=== PATIENT | female | born 1995 | race Caucasian/White ===

== ENCOUNTER 2022-10-23 19:18 | Emergency (ER) | payer SELFPAY ==
[~2022-10-23] VITALS: Ht 152.4 cm; Wt 52.6 kg
[2022-10-23 19:38] VITALS: BP 112/67
--- NOTE | 2022-10-23 20:08 | NUR ---
PATIENT REPORT POSITIVE TEST; HAS ABDOMINAL PAIN. PATIENT CURRENTLY DENIES VAGINAL BLEEDING PMH: IUP
[2022-10-23 20:31] LABS: BILIRUBIN,URINE NEGATIVE (NEGATIVE); BLOOD, URINE NEGATIVE (NEGATIVE); LEUKOCYTE ESTERASE ,URINE 3+ (NEGATIVE); NITRITE, URINE NEGATIVE (NEGATIVE); UGLUCOSE NEGATIVE (NEGATIVE)
[2022-10-23 20:32] LABS: APPEARANCE,URINE CLOUDY (CLEAR); COLOR,URINE AMBER (YELLOW)
[2022-10-23 20:43] LABS: RBC,URINE 0-5 /HPF (0-5)
[2022-10-23 21:17] LABS: BASOPHILS # (AUTO) 0.1 K/uL (0.00-0.22); BASOPHILS % (AUTO) 0.7 % (0.0-2.0); EOSINOPHILS # (AUTO) 0.1 K/uL (0-0.4); HEMATOCRIT 36.4 % (36-48); HEMOGLOBIN 12.8 g/dL (12.0-16.0); LYMPHOCYTES # (AUTO) 1.8 K/uL (2.5-16.5); LYMPHOCYTES % (AUTO) 22.6 % (20.5-51.1); MEAN CORPUSCULAR HEMOGLOBIN 31 pg (27-31); MEAN CORPUSCULAR HGB CONC 35 g/dL (33-37); MEAN CORPUSCULAR VOLUME 87.1 fL (80-94); MONOCYTES # (AUTO) 0.5 K/uL (0.8-1.0); MONOCYTES % (AUTO) 5.8 % (1.7-9.3); NEUTROPHILS # (AUTO) 5.6 K/uL (1.8-7.7); NEUTROPHILS % (AUTO) 69.9 % (42.2-75.2); PLATELET COUNT (AUTO) 202 K/uL (140-450); RED BLOOD CELL COUNT(AUTO) 4.17 MIL/uL (4.20-5.40); RED CELL DISTRIBUTION WIDTH 12.7 % (11.6-13.7)
[2022-10-23 21:34] LABS: ALBUMIN 3.9 g/dL (3.4-5.0); ANION GAP 13.4 (8-16); CARBON DIOXIDE 23.9 mmol/L (21-32); CREATININE 0.5 mg/dL (0.6-1.3); POTASSIUM 3.3 mmol/L (3.5-5.1); TOTAL BILIRUBIN 0.4 mg/dL (0.0-1.0)
[2022-10-23] MEDS ORDERED: NACL 0.9% 1,000 ML IV ONE (22:25)
[2022-10-23] MEDS ORDERED: ONDANSETRON 4 MG/2 ML VIAL IVP ONE (22:25)
[2022-10-23] MEDS ORDERED: CEPH-588 PO (22:36)
[2022-10-23] MEDS ORDERED: DOXY1TCP PO (22:36)
[2022-10-23 23:40] VITALS: BP 112/67
--- NOTE | 2022-10-23 23:40 | NUR ---
Patient discharged with v/s stable. Written and verbal after care instructions given and explained. Patient alert, oriented and verbalized understanding of instructions. Ambulatory with steady gait. All questions addressed prior to discharge. ID band removed. Patient advised to follow up with PMD. Rx of CEPHALEXIN AND DOXYLAMINE given. Patient educated on indication of medication including possible reaction and side effects. Opportunity to ask questions provided and answered. DX:(1). THREATENED MISCARRIAGE, (2). URINARY TRACT INFECTION,ADULT,(3). SUBCHORIONIC HEMATOMA
== END 2022-10-23 23:40 | disposition home or self-care (01) ==
LOC: MED 19:18
DX: O23.41 Unspecified infection of urinary tract in pregnancy, first trimester (principal); O21.8 Other vomiting complicating pregnancy; O20.8 Other hemorrhage in early pregnancy; Z3A.08 8 weeks gestation of pregnancy; Z79.899 Other long term (current) drug therapy
CPT/HCPCS: 36415; 76801; 80053; 81001; 81025; 84702; 85025; 86886; 86900; 86901; 87086; 96361; 96374; 99285; J2405; Q0092

== ENCOUNTER 2022-11-16 19:53 | Emergency (ER) | payer MEDICAID ==
[~2022-11-16] VITALS: Ht 152.4 cm; Wt 50.3 kg
[2022-11-16 19:53] VITALS: BP 136/72
[~2022-11-16 19:53] MED LIST: CEPH-588 PO; DOXY1TCP PO
--- NOTE | 2022-11-16 19:56 | NUR ---
TO LOBBY A/W BED AMBULATORY
--- NOTE | 2022-11-16 20:25 | NUR ---
SEEN AND EXAMINED BY PA
[2022-11-16] MEDS ORDERED: NACL 0.9% 1,000 ML IV ONE (20:30)
--- NOTE | 2022-11-16 21:08 | NUR ---
PT TO BED #4
--- NOTE | 2022-11-16 21:45 | NUR ---
at he bedside
[2022-11-16 22:39] VITALS: BP 136/72
--- NOTE | 2022-11-16 23:21 | NUR ---
Patient discharged with v/s stable. Written and verbal after care instructions given and explained. Patient verbalized understanding. Ambulatory with steady gait. All questions addressed prior to discharge. Advised to follow up with PMD. pt left with her belongings.
== END 2022-11-16 23:21 | disposition home or self-care (01) ==
LOC: MED 19:53
DX: O26.891 Other specified pregnancy related conditions, first trimester (principal); O21.8 Other vomiting complicating pregnancy; R04.0 Epistaxis; Z3A.12 12 weeks gestation of pregnancy; Z79.899 Other long term (current) drug therapy
CPT/HCPCS: 96360; 99283; J7030

== ENCOUNTER 2022-11-19 22:49 | Emergency (ER) | payer MEDICAID ==
[~2022-11-19] VITALS: Ht 152.4 cm; Wt 51.7 kg
[2022-11-19 23:13] VITALS: BP 104/72
[2022-11-19] MEDS ORDERED: diphenhydrAMINE 50 MG/ML VIAL IM ONE (23:20)
--- NOTE | 2022-11-19 23:20 | NUR ---
Patient ambulated to bed 11. at bedside.
--- NOTE | 2022-11-20 00:50 | NUR ---
DISCHARGED BY DR. BLACKWELL.
== END 2022-11-20 00:50 | disposition home or self-care (01) ==
LOC: MED 22:49
DX: R22.0 Localized swelling, mass and lump, head (principal); T45.0X5A Adverse effect of antiallergic and antiemetic drugs, initial encounter; Y92.89 Other specified places as the place of occurrence of the external cause
CPT/HCPCS: 96372; 99283; J1200